=== PATIENT | female | born 1995 | race Two or more races ===

== ENCOUNTER 2017-09-15 01:31 | Emergency (ER) | payer OTHER ==
[~2017-09-15] VITALS: Ht 167.6 cm; Wt 98.8 kg
--- NOTE | 2017-09-15 01:55 | PHYS DOC ---
Past History Past Medical History: No Pertinent History Past Surgical History: No Surgical History Smoking: Non-smoker Alcohol Use: None Drug Use: None Adult General Chief Complaint Chief Complaint: DIZZY/LIGHT HEADED HPI HPI 22-year-old female presents with report of dizziness which is been ongoing intermittently since yesterday. Patient reports she thinks she might be dehydrated. Reports has been working out and going to the sauna more often. Patient reports working tonight she started to feel very dizzy and subsequent ended up having some head pressure. Denies any loss of consciousness. Denies fever or chills. Denies cough. Denies chest pain. Denies known trauma. Patient denies any dysuria or hematuria. She is unsure if she might be . Review of Systems Review of Systems Constitutional: Denies fever or chills; reports malaise [] Eyes: Denies change in visual acuity, redness, or eye pain [] HENT: Denies nasal congestion or sore throat [] Respiratory: Denies cough or shortness of breath [] Cardiovascular: Denies chest pain or palpitations GI: Denies abdominal pain, nausea, vomiting, bloody stools or diarrhea [] : Denies dysuria or hematuria [] Musculoskeletal: Denies back pain or joint pain [] Integument: Denies rash or skin lesions [] Neurologic: Denies focal weakness or sensory changes; reports headache Complete systems were reviewed and found to be within normal limits, except as documented in this note. Physical Exam Physical Exam Constitutional: Well developed, well nourished, no acute distress, non-toxic appearance. [] HENT: Normocephalic, atraumatic, oropharynx moist Eyes: PERRL, EOMI, conjunctiva normal, no discharge. [] Neck: Normal range of motion, no tenderness, supple, no stridor. [] Cardiovascular: Heart rate regular rhythm, no murmur [] Lungs & Thorax: Bilateral breath sounds clear to auscultation, no wheezes, rhonchi, or rales Abdomen: Soft, no tenderness, no masses, no pulsatile masses. [] Skin: Warm, dry, no erythema, no rash. [] Back: No tenderness, no CVA tenderness. [] Extremities: No tenderness, ROM intact, no edema. [] Neurologic: Alert and oriented X 3, normal motor function, normal sensory function, no focal deficits noted. Cerebellar function intact. Psychologic: Affect normal, judgement normal, mood normal. [] EKG EKG NSR at 73bpm, No ST elevation, QRS 94ms, QT/QTc 392/436ms Radiology/Procedures Radiology/Procedures [] Course & Med Decision Making Course & Med Decision Making Pertinent Labs and Imaging studies reviewed. (See chart for details) Neurologically intact patient presents with report of dizziness with associated headache. Reports his been intermittent since yesterday. Patient denies current headache or dizziness at this time. Vital signs stable. Labs obtained and posted to chart. Potassium replaced. Orthostatic vital signs do note increase of greater than 10 and heart rate upon laying to sitting but patient denies symptomatology. EKG stable. Patient reports interval improvement of symptoms after IV fluid hydration. Patient stable for discharge with outpatient follow- up with PCP. Discussed findings and plan with patient, who acknowledges understanding and agreement. Dragon Disclaimer Dragon Disclaimer This electronic medical record was generated, in whole or in part, using a voice recognition dictation system. Departure Departure: Impression: Primary Impression: Dizziness Disposition: 01 HOME, SELF-CARE Condition: STABLE Referrals: PCP,UNKNOWN (PCP) Patient Instructions: Dizziness, Potassium Content of Foods KOREY QUINTANILLA DO Sep 15, 2017 01:55
[2017-09-15] MEDS ORDERED: IV NORMAL SALINE 1,000ML 1,000 ML IV ONE (02:00)
[2017-09-15 02:36] LABS: BASO # 0.1 x10^3/uL (0.0-0.2); BASO % 1 % (0-3); EOS # 0.1 x10^3/uL (0.0-0.7); EOS % 1 % (0-3); HEMATOCRIT 38.9 % (36.0-47.0); HEMOGLOBIN 13.2 g/dL (12.0-15.5); LYMPH # 3.6 x10^3/uL (1.0-4.8); LYMPH % 40 % (24-48); MEAN CORPUSCULAR HEMOGLOBIN 28 pg (25-35); MEAN CORPUSCULAR HGB CONC 34 g/dL (31-37); MEAN CORPUSCULAR VOLUME 84 fL (79-100); MONO # 0.8 x10^3/uL (0.0-1.1); MONO % 9 % (0-9); NEUT # 4.5 x10^3uL (1.8-7.7); NEUT % 49 % (31-73); PLATELET COUNT 222 x10^3/uL (140-400); RED BLOOD COUNT 4.65 x10^6/uL (3.50-5.40); RED CELL DISTRIBUTION WIDTH 14.4 % (11.5-14.5); WHITE BLOOD COUNT 9.1 x10^3/uL (4.0-11.0)
[2017-09-15 02:41] LABS: BACTERIA,URINE 0 /HPF (0-FEW); BILIRUBIN,URINE NEG (NEG); CLARITY,URINE HAZY; COLOR,URINE YELLOW; GLUCOSE,URINE NEG (NEG); NITRITE,URINE NEG (NEG); RBC,URINE 0 /HPF (0-2); SQUAMOUS EPITHELIAL CELL,UR MOD /LPF; UROBILINOGEN,URINE 1 mg/dL (0.2 mg/dL); WBC,URINE 0 /HPF (0-4)
[2017-09-15 03:11] LABS: ALBUMIN 3.5 g/dL (3.4-5.0); ALBUMIN/GLOBULIN RATIO 0.9 (1.0-1.7); CREATININE 0.7 mg/dL (0.6-1.0); GFR 103.7; MAGNESIUM 1.9 mg/dL (1.8-2.4); POTASSIUM 3.4 mmol/L (3.5-5.1); TOTAL BILIRUBIN 0.3 mg/dL (0.2-1.0); TOTAL PROTEIN 7.5 g/dL (6.4-8.2)
[2017-09-15] MEDS ORDERED: POTASSIUM CHLORIDE 20 MEQ TABLET.ER. PO ONE (03:15)
[2017-09-15 03:20] VITALS: BP 111/62
== END 2017-09-15 03:40 | disposition home or self-care (01) ==
LOC: ER 01:31
DX: R42 Dizziness and giddiness (principal); R51 Headache
CPT/HCPCS: 36415; 80053; 81001; 81025; 83735; 85025; 93005; 96360; 99285-25; J7030

== ENCOUNTER 2017-11-26 15:53 | Emergency (ER) | payer OTHER ==
[~2017-11-26] VITALS: Ht 162.6 cm; Wt 96.2 kg
--- NOTE | 2017-11-26 16:36 | RAD ---
2 views of the abdomen 11/26/2017 INDICATION: Constipation. Abdominal pain. COMPARISON STUDY: None FINDINGS: The bowel gas pattern is nonspecific and nonobstructive. No gross pneumoperitoneum is identified, though exam is limited for this purpose. No pathologic calcifications are acute osseous abnormalities are identified. IMPRESSION: Nonobstructive bowel gas pattern Electronically signed by: Eriberto Bhatti MD (11/26/2017 4:33 PM) [id number]
[2017-11-26 17:05] LABS: BILIRUBIN,URINE NEG (NEG); CLARITY,URINE CLEAR; COLOR,URINE YELLOW; GLUCOSE,URINE NEG (NEG); NITRITE,URINE NEG (NEG); UROBILINOGEN,URINE 0.2 mg/dL (0.2 mg/dL)
[2017-11-26] MEDS ORDERED: PEG4000S8 PO (17:05)
[2017-11-26] MEDS ORDERED: MAGN296S9 PO (17:05)
[2017-11-26] MEDS ORDERED: HYDR30CR61 TP (17:05)
--- NOTE | 2017-11-26 17:06 | PHYS DOC ---
Past History Past Medical History: No Pertinent History Past Surgical History: No Surgical History Smoking: Non-smoker Alcohol Use: None Drug Use: None Adult General Chief Complaint Chief Complaint: CONTISPATION [facility] HPI Patient is a 22 year old female who presents with complaining of constipation for 4 days. Patient states she usually gets bowel movement every other day but for the last 4 days she was not able to have a bowel movement and had amount of hard stool in yesterday felt something coming out of her anal area like a hemorrhoid. Patient states she took milk of magnesia without improvement of her constipation. She denies vomiting, fever and chills, urinary symptom. Review of Systems Review of Systems Constitutional: Denies fever or chills [] Eyes: Denies change in visual acuity, redness, or eye pain [] HENT: Denies nasal congestion or sore throat [] Respiratory: Denies cough or shortness of breath [] Cardiovascular: No additional information not addressed in HPI [] GI: Reports abdominal pain and constipation. : Denies dysuria or hematuria [] Musculoskeletal: Denies back pain or joint pain [] Integument: Denies rash or skin lesions [] Neurologic: Denies headache, focal weakness or sensory changes [] Endocrine: Denies polyuria or polydipsia [] All other systems were reviewed and found to be within normal limits, except as documented in this note. Allergies Allergies Allergies Coded Allergies Type Severity Reaction Last Updated Verified No Known Drug Allergies 11/26/17 No Physical Exam Physical Exam Constitutional: Well developed, well nourished, no acute distress, non-toxic appearance. [] HENT: Normocephalic, atraumatic Eyes: PERRLA, EOMI, conjunctiva normal, no discharge. [] Neck: Normal range of motion, no tenderness, supple, no stridor. [] Cardiovascular:Heart rate regular rhythm, no murmur [] Lungs & Thorax: Bilateral breath sounds clear to auscultation [] Abdomen: Bowel sounds normal, soft, no tenderness, no masses, no pulsatile masses. Skin: Warm, dry, no erythema, no rash. [] Back: No tenderness, no CVA tenderness. [] Extremities: No tenderness, no cyanosis, no clubbing, ROM intact, no edema. [] Neurologic: Alert and oriented X 3, normal motor function, normal sensory function, no focal deficits noted. [] Psychologic: Affect normal, judgement normal, mood normal. [] Current Patient Data Lab Results Laboratory Tests Test 11/26/17 16:38 POC Urine HCG, Qualitative hcg negative (Negative) EKG EKG [] Radiology/Procedures Radiology/[place] [address] IMAGING REPORT Signed PATIENT: MAXINE OLIVEIRA ACCOUNT: [id number] : 1995 LOCATION: ER AGE: 22 SEX: F EXAM STATUS: REG ER ORD. PHYSICIAN: TREASURE MONTANA MD REASON: constipation PROCEDURE: ABDOMEN SUPINE & UPRIGHT 2 views of the abdomen 11/26/2017 INDICATION: Constipation. Abdominal pain. COMPARISON STUDY: None FINDINGS: The bowel gas pattern is nonspecific and nonobstructive. No gross pneumoperitoneum is identified, though exam is limited for this purpose. No pathologic calcifications are acute osseous abnormalities are identified. IMPRESSION: Nonobstructive bowel gas pattern Electronically signed by: Eriberto Acharya MD (11/26/2017 4:33 PM) [facility] DICTATED AND SIGNED BY: ERIBERTO ACHARYA MD DATE: 11/26/17 1632 CC: KENDRA CARRANZA MD; TREASURE MONTANA MD ~ Course & Med Decision Making Course & Med Decision Making discharge: I've spoken with the patient and/or caregivers. I've explained the patient's condition, diagnosis and treatment plan based on information available to me at this time. I've answered the patient's and/or caregivers questions and addressed any concerns. The patient and/or caregivers have a good understanding the patient's diagnosis, condition and treatment plan as can be expected at this point. Vital signs have been stabilized. The patient's condition is stable for discharge from the emergency department. The patient will pursue further outpatient evaluation with her primary care provider or other designated consulting physician as outlined in the discharge instructions. Patient and/or caregivers are agreeable to this plan of care and follow-up instructions have been explained in detail. The patient and/or caregivers have received these instructions in written format and expressed understanding of these discharge instructions. The patient and her caregivers are aware that if any significant change in condition or worsening of symptoms should prompt him to immediately return to this of the closest emergency department. If an emergent department is not readily available I would encourage him to call 911. Celestina Disclaimer Celestina Disclaimer This electronic medical record was generated, in whole or in part, using a voice recognition dictation system. Departure Departure: Impression: Primary Impression: Constipation Additional Impression: Hemorrhoid Disposition: HOME, SELF-CARE (at 1703) Condition: STABLE Referrals: KENDRA CARRANZA MD (PCP) Patient Instructions: Constipation, Adult, Hemorrhoids, Sitz Bath Additional Instructions: Drink plenty of liquids Follow-up with your primary care physician in 3-5 days Return to ER if not getting better Scripts Hydrocortisone (ANUSOL-HC) 30 Gm Cream..g. 1 KEYSHA TP BID, #30 GM 0 Refills Prov: TREASURE MONTANA MD 11/26/17 Peg 3350/Na Sulf,Bicarb,Cl/Kcl (GOLYTELY SOLUTION) 4,000 Ml Soln.recon 250 ML PO Q1HR, #1 MISC Prov: TREASURE MONTANA MD 11/26/17 Magnesium Citrate (MAGNESIUM CITRATE) 296 Ml Solution 296 ML PO ONCE, #296 ML Prov: TREASURE MONTANA MD 11/26/17 Problem Qualifiers TREASURE MONTANA MD Nov 26, 2017 17:05
[2017-11-26 17:15] VITALS: BP 126/76
== END 2017-11-26 17:19 | disposition home or self-care (01) ==
LOC: ER 15:53
DX: K59.00 Constipation, unspecified (principal); K64.9 Unspecified hemorrhoids
CPT/HCPCS: 74021; 81003; 81025; 99284; 99285

== ENCOUNTER 2018-01-06 00:18 | Emergency (ER) | payer OTHER ==
[~2018-01-06] VITALS: Ht 167.6 cm; Wt 100.4 kg
[~2018-01-06 00:18] MED LIST: HYDR30CR61 TP; MAGN296S9 PO; PEG4000S8 PO
[2018-01-06 00:34] VITALS: BP 124/73
--- NOTE | 2018-01-06 00:41 | PHYS DOC ---
Adult General Chief Complaint Chief Complaint runny nose HPI HPI 22 years old female presented to the emergency department with multiple complaints including runny nose , sore throat, dry cough, vomiting and diarrhea for the past 72 hours , no fever no chills no urgency or frequency no hematuria no chest pain or shortness of breath Review of Systems Review of Systems Constitutional: Denies fever or chills [] Eyes: Denies change in visual acuity, redness, or eye pain [][] Respiratory: Denies shortness of breath [] Cardiovascular: No additional information not addressed in HPI [] GI: Denies abdominal pain, nausea, vomiting, bloody stools or diarrhea [] : Denies dysuria or hematuria [] Musculoskeletal: Denies back pain or joint pain [] Integument: Denies rash or skin lesions [] Neurologic: Denies headache, focal weakness or sensory changes [] Endocrine: Denies polyuria or polydipsia [] All other systems were reviewed and found to be within normal limits, except as documented in this note. Allergies Allergies Allergies Coded Allergies Type Severity Reaction Last Updated Verified No Known Drug Allergies 11/26/17 No Physical Exam Physical Exam Constitutional: Well developed, well nourished, no acute distress, non-toxic appearance. [] HENT: Normocephalic, atraumatic, bilateral external ears normal, oropharynx moist, no oral exudates, nose normal. [] Eyes: PERRLA, EOMI, conjunctiva normal, no discharge. [] Neck: Normal range of motion, no tenderness, supple, no stridor. [] Cardiovascular:Heart rate regular rhythm, no murmur [] Lungs & Thorax: Bilateral breath sounds clear to auscultation [] Abdomen: Bowel sounds normal, soft, no tenderness, no masses, no pulsatile masses. [] Skin: Warm, dry, no erythema, no rash. [] Back: No tenderness, no CVA tenderness. [] Extremities: No tenderness, no cyanosis, no clubbing, ROM intact, no edema. [] Neurologic: Alert and oriented X 3, normal motor function, normal sensory function, no focal deficits noted. [] Psychologic: Affect normal, judgement normal, mood normal. [] Current Patient Data Vital Signs Vital Signs Date Time Temp Pulse Resp B/P (MAP) Pulse Ox O2 Delivery O2 Flow Rate FiO2 01/06/18 00:34 97.6 78 20 96 Room Air EKG EKG [] Radiology/Procedures Radiology/Procedures [] Course & Med Decision Making Course & Med Decision Making Pertinent Labs and Imaging studies reviewed. (See chart for details) [] Final Impression Final Impression [] Problems: (1) Viral upper respiratory tract infection Dragon Disclaimer Dragon Disclaimer This electronic medical record was generated, in whole or in part, using a voice recognition dictation system. NITIN ALONSO MD Jan 06, 2018 00:41
[2018-01-06] MEDS ORDERED: FLUT9.9S16 NS (00:43)
== END 2018-01-06 00:50 | disposition home or self-care (01) ==
LOC: ER 00:18
DX: J06.9 Acute upper respiratory infection, unspecified (principal); B97.89 Other viral agents as the cause of diseases classified elsewhere; R19.7 Diarrhea, unspecified; R11.11 Vomiting without nausea
CPT/HCPCS: 99283